=== PATIENT | female | born 1990 | race American Indian/Alaskan Native ===

== ENCOUNTER 2018-03-13 18:58 | Emergency (ER) | payer MEDICAID ==
--- NOTE | 2018-03-13 19:53 | EDM.PDOC ---
ED HPI GENERAL MEDICAL PROBLEM - General Chief Complaint: Lower Extremity Injury/Pain Stated Complaint: LEFT LEG PAIN Time Seen by Provider: 03/13/18 19:25 Source of Information: Reports: Patient History Limitations: Reports: No Limitations - History of Present Illness INITIAL COMMENTS - FREE TEXT/NARRATIVE: Left calf pain: this is a 27 year old female presents to ER for evaluation of left calf pain. States she woke up yesterday am with lower leg pain. since then has had constant pain with walking, leg feels numb and cool. denies any fever, chills, chest pain, shortness of breath, nausea, vomiting, diarrhea, rash or other symptoms except for lower leg pain. Onset Date: 03/12/18 Duration: Getting Worse Location: Reports: Lower Extremity, Left Quality: Reports: Ache, Pressure, Throbbing Severity: Moderate Improves with: Reports: Rest Worsens with: Reports: Movement Associated Symptoms: Reports: No Other Symptoms Left Knee Pain Score (Numeric/FACES): 4 - Related Data Allergies Allergy/AdvReac Type Severity Reaction Status Date / Time No Known Allergies Allergy Verified 03/13/18 19:26 Home Meds: Home Meds NK [No Known Home Meds] 03/13/18 [History] Past Medical History - Past Health History Medical/Surgical History: Denies Medical/Surgical History Social & Family History - Tobacco Use Smoking Status *Q: Current Every Day Smoker Years of Tobacco use: 10 Packs/Tins Daily: 0.5 - Living Situation & Occupation Living situation: Reports: Single (lives in [place], [place].) Review of Systems - Review of Systems Review Of Systems: See Below Constitutional: Reports: No Symptoms Eyes: Reports: No Symptoms Ears: Reports: No Symptoms Nose: Reports: No Symptoms Mouth/Throat: Reports: No Symptoms Respiratory: Reports: No Symptoms Cardiovascular: Reports: No Symptoms Genitourinary: Reports: No Symptoms Musculoskeletal: Reports: Leg Pain (left lower leg) Skin: Reports: No Symptoms Neurological: Reports: No Symptoms Psychiatric: Reports: No Symptoms ED EXAM, GENERAL - Physical Exam Exam: See Below Exam Limited By: No Limitations General Appearance: Alert, WD/WN, Mild Distress Head: Atraumatic, Normocephalic Neck: Normal Inspection, Supple, Non-Tender, Full Range of Motion Respiratory/Chest: No Respiratory Distress, Lungs Clear, Normal Breath Sounds, No Accessory Muscle Use, Chest Non-Tender Cardiovascular: Normal Peripheral Pulses, Regular Rate, Rhythm, No Edema, No Murmur Peripheral Pulses: 1+: Femoral (L), 2+: Femoral (R), Dorsalis Pedis (L), Dorsalis Pedis (R) GI/Abdominal: Normal Bowel Sounds, Soft, Non-Tender, No Organomegaly, No Distention, No Abnormal Bruit, No Mass Back Exam: Normal Inspection, Full Range of Motion, Other (no pain or tenderness with palpation of spine) Extremities: Normal Inspection, Justyna's Sign (left leg), Leg Pain (left lower leg), Other (left lower leg feels cooler than the right lower leg. muscle tense) Neurological: Alert, Oriented, Normal Cognition, Other (walking with limp) Psychiatric: Normal Affect, Normal Mood Skin Exam: Warm, Dry, Intact, Normal Color, No Rash Lymphatic: No Adenopathy Course - Vital Signs Last Recorded V/S: Last Vital Signs Temp 36.0 C 03/13/18 19:33 Pulse 91 03/13/18 19:33 Resp 15 03/13/18 19:33 BP 111/63 03/13/18 19:33 Pulse Ox 99 03/13/18 19:33 - Orders/Labs/Meds Orders: Active Orders 24 hr Category Date Time Status VL Duplex Lwr Ext Veins Ltd Lt [US] Stat Exams 03/13/18 19:46 Ordered DME for Discharge [COMM] Urgent Oth 03/13/18 21:15 Ordered Labs: Laboratory Tests 03/13/18 03/13/18 03/13/18 Range/Units 19:50 19:50 19:50 WBC 8.8 (4.5-11.0) K/uL RBC 4.51 (3.30-5.50) M/uL Hgb 13.4 (12.0-15.0) g/dL Hct 41.2 (36.0-48.0) % MCV 91 (80-98) fL MCH 30 (27-31) pg MCHC 33 (32-36) % Plt Count 300 (150-400) K/uL Neut % (Auto) 59 (36-66) % Lymph % (Auto) 30 (24-44) % [place] % (Auto) 6 (2-6) % Eos % (Auto) 5 H (2-4) % Baso % (Auto) 1 (0-1) % D-Dimer, Quantitative 240 (0.0-400.0) ng/mL Sodium 143 (140-148) mmol/L Potassium 4.3 (3.6-5.2) mmol/L Chloride 107 (100-108) mmol/L Carbon Dioxide 29 (21-32) mmol/L Anion Gap 6.8 (5.0-14.0) mmol/L BUN 13 (7-18) mg/dL Creatinine 0.8 (0.6-1.0) mg/dL Est Cr Clr Drug Dosing 92.83 mL/min Estimated GFR (MDRD) > 60 (>60) Glucose 116 H (74-106) mg/dL Calcium 8.6 (8.5-10.1) mg/dL Total Bilirubin 0.1 L (0.2-1.0) mg/dL AST 15 (15-37) U/L ALT 33 (12-78) U/L Alkaline Phosphatase 93 (46-116) U/L Total Protein 7.0 (6.4-8.2) g/dL Albumin 3.0 L (3.4-5.0) g/dL Globulin 4.0 H (2.3-3.5) g/dL Albumin/Globulin Ratio 0.8 L (1.2-2.2) - Re-Assessments/Exams Free Text/Narrative Re-Assessment/Exam: 03/13/18 19:55 -discussed will do labs and xray to rule out infection, vs DVT, vs muscle strain. -agrees with plan of care. 03/13/18 21:07 Doppler ultrasound of left leg negative for DVT labs normal, D-dimer 240 03/13/18 21:20 reviewed results with Patient and her family. will rest, treat for pain and follow up in Primary Care, will return to ER if not improved or symptoms worsen Departure - Departure Time of Disposition: 21:21 Disposition: Home, Self-Care 01 Condition: Good Clinical Impression: Leg pain, left - Discharge Information *PRESCRIPTION DRUG MONITORING PROGRAM REVIEWED*: No *COPY OF PRESCRIPTION DRUG MONITORING REPORT IN PATIENT CHIKA: No Instructions: Pain Without a Known Cause, Muscle Strain, [id number] Referrals: PCP,None [Primary Care Provider] - Forms: ED Department Discharge Care Plan Goals: Left Leg pain -Tylenol #3, take one tablet every 4 to 6 hours as needed for pain #15 -Flexeril 10mg one tablet every 8 hours as needed for pain #15 -may take over the counter Motrin 400mg every 8 hours as needed for pain -rest -ice or heat for comfort -crutches for walking -follow up with Primary Care tomorrow for recheck. -return to ER for any worsen of symptoms or any concerns. - Problem List & Annotations (1) Leg pain, left SNOMED Code(s): 061550912 Code(s): M79.605 - PAIN IN LEFT LEG Status: Acute Priority: High Current Visit: Yes - Problem List Review Problem List Initiated/Reviewed/Updated: Yes - My Orders Last 24 Hours: My Active Orders 03/13/18 19:46 VL Duplex Lwr Ext Veins Ltd Lt [US] Stat 03/13/18 21:15 DME for Discharge [COMM] Urgent - Assessment/Plan Last 24 Hours: My Active Orders 03/13/18 19:46 VL Duplex Lwr Ext Veins Ltd Lt [US] Stat 03/13/18 21:15 DME for Discharge [COMM] Urgent Plan: Left Leg pain -Tylenol #3, take one tablet every 4 to 6 hours as needed for pain #15 -Flexeril 10mg one tablet every 8 hours as needed for pain #15 -may take over the counter Motrin 400mg every 8 hours as needed for pain -rest -ice or heat for comfort -crutches for walking -follow up with Primary Care tomorrow for recheck. -return to ER for any worsen of symptoms or any concerns.
== END 2018-03-13 21:35 | disposition home or self-care (01) ==
LOC: JP.ED 18:58
DX: M79.605 Pain in left leg (principal); F17.210 Nicotine dependence, cigarettes, uncomplicated
CPT/HCPCS: 36415; 80053; 85025; 85379; 93971-LT; 99284-25

== ENCOUNTER 2020-01-28 14:09 | Emergency (ER) | payer MEDICAID ==
--- NOTE | 2020-01-28 14:40 | EDM.PDOC ---
ED HPI GENERAL MEDICAL PROBLEM - General Chief Complaint: Upper Extremity Injury/Pain Stated Complaint: LEFT SHOULDER PAIN Time Seen by Provider: 01/28/20 14:25 Source of Information: Reports: Patient, Old Records, RN History Limitations: Reports: No Limitations - History of Present Illness INITIAL COMMENTS - FREE TEXT/NARRATIVE: 29 yo female was wrestling with a girlfriend and ran into a door. Is not sure what part of the L shoulder impacted the door, but has pain to the back and top of that shoulder now. Injury was about an hour ago. No self tx. No other injuries reported. Onset: Today, Sudden Onset Date: 01/28/20 Onset Time: 13:30 Duration: Hour(s): (1), Constant Location: Reports: Upper Extremity, Left Quality: Reports: Ache Severity: Moderate Improves with: Reports: Rest Worsens with: Reports: Movement Context: Reports: Trauma Associated Symptoms: Reports: No Other Symptoms Treatments [employer]: Reports: Other (see below) (none) - Related Data Allergies Allergy/AdvReac Type Severity Reaction Status Date / Time No Known Allergies Allergy Verified 01/28/20 14:28 Home Meds: Home Meds NK [No Known Home Meds] 03/13/18 [History] Past Medical History - Past Health History Medical/Surgical History: Denies 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: - Past Surgical History Head Surgeries/Procedures: Reports: None Dermatological Surgical History: Reports: None Social & Family History - Tobacco Use Tobacco Use Status *Q: Current Every Day Tobacco User Years of Tobacco use: 10 Packs/Tins Daily: 0.5 Used Tobacco, but Quit: No Second Hand Smoke Exposure: Yes - Caffeine Use Caffeine Use: Reports: None - Recreational Drug Use Recreational Drug Use: No - Living Situation & Occupation Living situation: Reports: Single (lives in [place], [place].) Review of Systems - Review of Systems Review Of Systems: See Below Constitutional: Reports: No Symptoms Eyes: Reports: No Symptoms Ears: Reports: No Symptoms Nose: Reports: No Symptoms Respiratory: Reports: No Symptoms Cardiovascular: Reports: No Symptoms Musculoskeletal: Reports: Shoulder Pain (left). Denies: Arm Pain, Back Pain Skin: Reports: No Symptoms Neurological: Reports: No Symptoms ED EXAM, GENERAL - Physical Exam Exam: See Below Exam Limited By: No Limitations General Appearance: Alert, WD/WN, No Apparent Distress Extremities: Normal Inspection, No Pedal Edema, Limited Range of Motion (due to pain), Other (tenderness mainly over the upper L trapezius muscle. ). No: Normal Range of Motion, Non-Tender, Pedal Edema, Increased Warmth, Redness Neurological: Alert, Oriented, CN II-XII Intact, Normal Cognition, No Motor/Sensory Deficits Psychiatric: Normal Affect, Normal Mood Skin Exam: Warm, Dry, Intact, Normal Color, No Rash Course - Vital Signs Last Recorded V/S: Last Vital Signs Temp 37.1 C 01/28/20 14:28 Pulse 101 H 01/28/20 14:28 Resp 16 01/28/20 14:28 BP 120/77 01/28/20 14:28 Pulse Ox 99 01/28/20 14:28 - Orders/Labs/Meds Meds: Medications Discontinued Medications Generic Name Dose Route Start Last Admin Trade Name Freq PRN Reason Stop Dose Admin Ibuprofen 600 mg 01/28/20 14:35 01/28/20 14:45 Motrin PO 01/28/20 14:36 600 mg ONETIME ONE Administration - Radiology Interpretation Free Text/Narrative:: L shoulder [id number]: No acute fracture or dislocation. Joint spaces are well preserved. The visualized lungs are clear. Soft tissues are unremarkable. Impression: No acute findings. Dictated by Karmen Bailey MD @ Jan 28 2020 2:52PM Departure - Departure Time of Disposition: 15:10 Disposition: Home, Self-Care 01 Condition: Fair Clinical Impression: Left shoulder pain Qualifiers: Chronicity: acute Qualified Code(s): M25.512 - Pain in left shoulder - Discharge Information *PRESCRIPTION DRUG MONITORING PROGRAM REVIEWED*: No *COPY OF PRESCRIPTION DRUG MONITORING REPORT IN PATIENT CHIKA: No Instructions: Shoulder Pain Referrals: PCP,None [Primary Care Provider] - Forms: ED Department Discharge Additional Instructions: Wear the sling for support as long as your shoulder still hurts. Take ibuprofen 600 mg every 6 hrs and/or acetaminophen 650 mg every 4 hrs as needed for pain relief. Recheck with your doctor if not fully healed in a week. Sepsis Event Note (ED) - Evaluation Sepsis Screening Result: No Definite Risk - Focused Exam Vital Signs: Vital Signs Temp Pulse Resp BP Pulse Ox 01/28/20 14:28 37.1 C 101 H 16 120/77 99 01/28/20 14:26 37.1 C 101 H 16 120/77 99
[2020-01-28] MEDS: Ibuprofen 600 MG Tab PO ONE (14:45)
--- NOTE | 2020-01-28 14:56 | CRLCR ---
Indication: Hit in the back of the shoulder area with a door. Technique: Left shoulder 4 views. Comparison: None. Findings: No acute fracture or dislocation. Joint spaces are well preserved. The visualized lungs are clear. Soft tissues are unremarkable. Impression: No acute findings. Dictated by Karmen Bailey MD @ Jan 28 2020 2:52PM Signed by Dr. Karmen Bailey @ Jan 28 2020 2:54PM
== END 2020-01-28 15:11 | disposition home or self-care (01) ==
LOC: JP.ED 14:09
DX: M25.512 Pain in left shoulder (principal); F17.210 Nicotine dependence, cigarettes, uncomplicated
CPT/HCPCS: 73030; 99283; A9270

== ENCOUNTER 2020-12-05 17:36 | Emergency (ER) | payer MEDICAID ==
--- NOTE | 2020-12-05 18:31 | EDM.PDOC ---
ED HPI GENERAL MEDICAL PROBLEM - General Chief Complaint: General Stated Complaint: ABDOMINAL PAIN L SIDE Time Seen by Provider: 12/05/20 18:24 Source of Information: Reports: Patient History Limitations: Reports: No Limitations - History of Present Illness INITIAL COMMENTS - FREE TEXT/NARRATIVE: Edwin is a 30-year-old female presenting to the ED for evaluation of left-sided abdominal pain since yesterday. The patient has had a bowel movement but she cannot remember if it was last evening or this morning. She denies any nausea or vomiting. She has intense pain in the left inguinal fold going to the mons pubis. There is a bulge in that area that is exquisitely tender as well. She has had a hysterectomy after her last . She reports it was a total hysterectomy. She does have a scar just adjacent to the area of the bulge. She denies any fever or chills, she does have a diminished appetite, she denies any nausea or vomiting, urinary symptoms, or back pain. Left Lower Abdomen Pain Score (Numeric/FACES): 7 - Related Data Allergies Allergy/AdvReac Type Severity Reaction Status Date / Time No Known Allergies Allergy Verified 01/28/20 14:28 Home Meds: Home Meds NK [No Known Home Meds] 03/13/18 [History] Past Medical History - Past Health History Medical/Surgical History: Denies Medical/Surgical History [employer] History: Reports: - Past Surgical History Head Surgeries/Procedures: Reports: None Female Surgical History: Reports: Hysterectomy Dermatological Surgical History: Reports: None Social & Family History - Tobacco Use Tobacco Use Status *Q: Current Every Day Tobacco User Years of Tobacco use: 10 Packs/Tins Daily: 0.5 - Caffeine Use Caffeine Use: Reports: Coffee, Soda, Tea - Recreational Drug Use Recreational Drug Use: No - Living Situation & Occupation Living situation: Reports: Single (lives in [place], [place].) ED ROS GENERAL - Review of Systems Review Of Systems: See Below Constitutional: Reports: Decreased Appetite HEENT: Reports: No Symptoms Respiratory: Reports: No Symptoms Cardiovascular: Reports: No Symptoms Endocrine: Reports: No Symptoms GI/Abdominal: Reports: Abdominal Pain (Bilateral lower quadrants and left inguinal fold), Other (Bulging at the left inguinal fold) : Reports: No Symptoms Musculoskeletal: Reports: No Symptoms Skin: Reports: No Symptoms Neurological: Reports: No Symptoms Psychiatric: Reports: Anxiety Hematologic/Lymphatic: Reports: No Symptoms Immunologic: Reports: No Symptoms ED EXAM, GENERAL - Physical Exam Exam: See Below Exam Limited By: No Limitations General Appearance: Alert, Anxious, Moderate Distress Eye Exam: Bilateral Eye: EOMI, PERRL Throat/Mouth: Normal Inspection, Normal Oropharynx, Normal Voice, No Airway Compromise Head: Atraumatic, Normocephalic Neck: Normal Inspection, Supple, Non-Tender, Full Range of Motion Respiratory/Chest: No Respiratory Distress, Lungs Clear, Normal Breath Sounds Cardiovascular: Normal Peripheral Pulses, Regular Rate, Rhythm, No Murmur Peripheral Pulses: 2+: Radial (L), Radial (R) GI/Abdominal: Guarding (Right lower quadrant and left lower quadrant), Abnormal Bowel Sounds (Diminished bowel sounds), Hernia (A exquisitely tender and firm area starting at the left inguinal fold going into the mons pubis. This area is distended and worrisome for an incarcerated hernia. The edge of the area is adjacent to her scar.). No: Rebound Back Exam: Normal Inspection, Full Range of Motion Extremities: Normal Inspection, Normal Range of Motion Neurological: Alert, Oriented, Normal Cognition, No Motor/Sensory Deficits Psychiatric: Anxious Skin Exam: Warm, Dry, Intact, Normal Color Lymphatic: No Adenopathy Course - Vital Signs Last Recorded V/S: Last Vital Signs Temp 36.5 C 12/05/20 18:24 Pulse 114 H 12/05/20 18:24 Resp 18 12/05/20 18:24 BP 128/64 12/05/20 18:24 Pulse Ox 100 12/05/20 18:24 - Orders/Labs/Meds Orders: Active Orders 24 hr Category Date Time Status CHLAMYDIA/GC AMPLIFICATION Stat Lab 12/05/20 21:41 Received Iopamidol [Isovue-300 (61%)] Med 12/05/20 18:55 Active 88 ml IV . DIRECTED PRN Sodium Chloride 0.9% [Normal Saline] 100 ml Med 12/05/20 19:00 Active IV ASDIRECTED Sodium Chloride 0.9% [Saline Flush] Med 12/05/20 18:32 Active 10 ml FLUSH ASDIRECTED PRN Saline Lock Insert [OM.PC] Routine Oth 12/05/20 18:32 Ordered Medication Orders Sodium Chloride (Normal Saline) 100 mls @ 3 mls/sec IV ASDIRECTED CHIP Last Admin: 12/05/20 19:28 Dose: 3 mls/sec Documented by: NÉSTOR Iopamidol (Iopamidol 612 Mg/Ml 100 Ml Bottle) 88 ml IV . DIRECTED PRN PRN Reason: RADIOLOGY EXAM Stop: 12/06/20 18:56 Last Admin: 12/05/20 19:28 Dose: 88 ml Documented by: NÉSTOR Sodium Chloride (Sodium Chloride 0.9% 10 Ml Syringe) 10 ml FLUSH ASDIRECTED PRN PRN Reason: Keep Vein Open Last Admin: 12/05/20 18:39 Dose: 10 ml Documented by: MATHEW Labs: Laboratory Tests 12/05/20 12/05/20 12/05/20 Range/Units 18:40 18:40 18:40 WBC 12.0 H (4.5-11.0) K/uL RBC 4.23 (3.30-5.50) M/uL Hgb 12.0 (12.0-15.0) g/dL Hct 37.2 (36.0-48.0) % MCV 88 (80-98) fL MCH 28 (27-31) pg MCHC 32 (32-36) % Plt Count 338 (150-400) K/uL Neut % (Auto) 78.7 H (36-66) % Lymph % (Auto) 12.9 L (24-44) % [place] % (Auto) 6.6 H (2-6) % Eos % (Auto) 1.5 L (2-4) % Baso % (Auto) 0.3 (0-1) % Sodium 136 L (140-148) mmol/L Potassium 4.1 (3.6-5.2) mmol/L Chloride 101 (100-108) mmol/L Carbon Dioxide 27 (21-32) mmol/L Anion Gap 12.1 (5.0-14.0) mmol/L BUN 8 (7-18) mg/dL Creatinine 0.6 (0.6-1.0) mg/dL Est Cr Clr Drug Dosing 115.47 mL/min Estimated GFR (MDRD) > 60 (>60) Glucose 95 (74-106) mg/dL Lactic Acid 0.9 (0.4-2.0) mmol/L Calcium 8.3 L (8.5-10.1) mg/dL Total Bilirubin 0.1 L (0.2-1.0) mg/dL AST 28 D (15-37) U/L ALT 41 (12-78) U/L Alkaline Phosphatase 127 H (46-116) U/L Total Protein 6.4 (6.4-8.2) g/dL Albumin 2.8 L (3.4-5.0) g/dL Globulin 3.6 H (2.3-3.5) g/dL Albumin/Globulin Ratio 0.8 L (1.2-2.2) SARS-CoV-2 RNA (JANUARY) (NEGATIVE) 12/05/20 Range/Units 18:42 WBC (4.5-11.0) K/uL RBC (3.30-5.50) M/uL Hgb (12.0-15.0) g/dL Hct (36.0-48.0) % MCV (80-98) fL MCH (27-31) pg MCHC (32-36) % Plt Count (150-400) K/uL Neut % (Auto) (36-66) % Lymph % (Auto) (24-44) % [place] % (Auto) (2-6) % Eos % (Auto) (2-4) % Baso % (Auto) (0-1) % Sodium (140-148) mmol/L Potassium (3.6-5.2) mmol/L Chloride (100-108) mmol/L Carbon Dioxide (21-32) mmol/L Anion Gap (5.0-14.0) mmol/L BUN (7-18) mg/dL Creatinine (0.6-1.0) mg/dL Est Cr Clr Drug Dosing mL/min Estimated GFR (MDRD) (>60) Glucose (74-106) mg/dL Lactic Acid (0.4-2.0) mmol/L Calcium (8.5-10.1) mg/dL Total Bilirubin (0.2-1.0) mg/dL AST (15-37) U/L ALT (12-78) U/L Alkaline Phosphatase (46-116) U/L Total Protein (6.4-8.2) g/dL Albumin (3.4-5.0) g/dL Globulin (2.3-3.5) g/dL Albumin/Globulin Ratio (1.2-2.2) SARS-CoV-2 RNA (JANUARY) Negative (NEGATIVE) Meds: Medications Generic Name Dose Route Start Last Admin Trade Name Sidneyq PRN Reason Stop Dose Admin Sodium Chloride 100 mls @ 3 mls/sec 12/05/20 19:00 12/05/20 19:28 Normal Saline IV 3 mls/sec ASDIRECTED CHIP Administration Iopamidol 88 ml 12/05/20 18:55 12/05/20 19:28 Iopamidol 612 Mg/Ml 100 Ml Bottle IV 12/06/20 18:56 88 ml . DIRECTED PRN Administration RADIOLOGY EXAM Sodium Chloride 10 ml 12/05/20 18:32 12/05/20 18:39 Sodium Chloride 0.9% 10 Ml Syringe FLUSH 10 ml ASDIRECTED PRN Administration Keep Vein Open Discontinued Medications Generic Name Dose Route Start Last Admin Trade Name Freq PRN Reason Stop Dose Admin Azithromycin 1,000 mg 12/05/20 21:19 12/05/20 21:48 Azithromycin 250 Mg Tab PO 12/05/20 21:20 1,000 mg ONETIME ONE Administration Ceftriaxone Sodium 250 mg 12/05/20 21:19 12/05/20 21:47 Ceftriaxone 500 Mg Vial IM 12/05/20 21:20 250 mg ONETIME ONE Administration Doxycycline Hyclate 100 mg 12/05/20 21:19 12/05/20 21:48 Doxycycline 100 Mg Cap PO 12/05/20 21:20 100 mg ONETIME ONE Administration Hydromorphone HCl 0.5 mg 12/05/20 18:32 12/05/20 18:37 Hydromorphone 0.5 Mg/0.5 Ml Syringe IVPUSH 12/05/20 18:33 0.5 mg ONETIME ONE Administration Ondansetron HCl 4 mg 12/05/20 18:32 12/05/20 18:37 Ondansetron 4 Mg/2 Ml Sdv IVPUSH 12/05/20 18:33 4 mg ONETIME ONE Administration Sodium Chloride 10 ml 12/05/20 18:55 12/05/20 19:28 Sodium Chloride 0.9% 10 Ml Sdv FLUSH 12/05/20 18:56 10 ml ONETIME ONE Administration - Radiology Interpretation Free Text/Narrative:: I reviewed the images of the CT of the abdomen and pelvis with contrast as well as the report. The report is as follows: Findings: Bibasilar atelectasis is identified. The heart is normal in size. No pericardial effusion is identified. The liver, spleen, pancreas, adrenals, gallbladder, and kidneys are normal. No intrahepatic biliary ductal dilatation is identified. No hydronephrosis is identified. In the pelvis, the urinary bladder is normal. The uterus is normal. Probable small left ovarian cyst is identified. Thickening of the wall the urinary bladder is identified which may be due to cystitis versus incomplete distention. The small and large bowel are normal in caliber. The aorta is normal in caliber. No free fluid or free air is identified within the abdomen or pelvis. Numerous left inguinal and left pelvic sidewall lymph nodes are identified up. At the level of the left inguinal canal, a lymph node is identified measuring 2.0 x 1.4 centimeters in size. This has low density centrally. In the left inguinal region, a lymph node is identified measuring 2.4 x 2.7 centimeters in size. Multiple other lymph nodes are identified in this region. Fat stranding is identified in this region. Impression: No evidence of inguinal hernia. Numerous enlarged and normal sized lymph nodes identified within the left pelvic sidewall and the left inguinal region. Some of these do have low attenuation centrally, suggesting necrosis. Surrounding fat stranding is identified in the left inguinal region extending into the mons pubis. Thickening of the wall of the urinary bladder, cystitis versus lack of complete distention. This findings may all be related to infection. However, other etiologies cannot be completely excluded. Consideration should be given to follow-up imaging to resolution. Please note that all CT scans at this facility use dose modulation, iterative reconstruction, and/or weight-based dosing when appropriate to reduce radiation dose to as low as reasonably achievable. Dictated by Oneyda Davidson MD @ 12/05/2020 8:15:12 PM - Re-Assessments/Exams Free Text/Narrative Re-Assessment/Exam: 12/05/20 20:17 I reviewed the patient's labs showing a mild leukocytosis at 12.0, hemoglobin of 12.0 with a hematocrit of 37.2 and platelet count of 338,000. Her comprehensive metabolic profile is normal. Her venous lactate is 0.9. She is Covid negative. I discussed the results of the CT of the abdomen and pelvis with Dr. Garcia who feels that this is probably an infectious process and recommended covering for any STIs including chlamydia, gonorrhea, and syphilis. We will get a GC and chlamydia test and we are treating her with azithromycin 1 g p.o., doxycycline 100 mg twice daily for 14 days for syphilis and Rocephin 250 mg IM. This should cover the gonorrhea, chlamydia, and syphilis. Would like her to follow-up with her primary doc within a week for reevaluation. Indications return to the ED were discussed. Departure - Departure Time of Disposition: 22:39 Disposition: Home, Self-Care 01 Clinical Impression: Acute inguinal lymphadenitis, STI (sexually transmitted infection), Pelvic inflammatory disease (PID) - Discharge Information Instructions: Pelvic Inflammatory Disease, [id number] Referrals: PCP,None [Primary Care Provider] - Forms: ED Department Discharge Care Plan Goals: We have started you on antibiotics to treat for pelvic inflammatory disease which is causing swelling and inflammation around your lymph nodes in the pelvis. I am also going to put you on doxycycline 100 mg twice daily for the next 14 days to treat for syphilis prophylactically. I would commend that your partner be checked or treated for chlamydia/gonorrhea/syphilis as well so that the infection does not perpetuate. Sepsis Event Note (ED) - Focused Exam Vital Signs: Vital Signs Temp Pulse Resp BP Pulse Ox 12/05/20 18:24 36.5 C 114 H 18 128/64 100 12/05/20 18:01 36.5 C 114 H 18 128/64 100 - Problem List & Annotations (1) Acute inguinal lymphadenitis SNOMED Code(s): 78768111233364925 Code(s): L04.8 - ACUTE LYMPHADENITIS OF OTHER SITES Status: Acute Priority: High Current Visit: Yes (2) Pelvic inflammatory disease (PID) SNOMED Code(s): 587866448 Code(s): N73.9 - FEMALE PELVIC INFLAMMATORY DISEASE, UNSPECIFIED Status: Acute Priority: High Current Visit: Yes (3) STI (sexually transmitted infection) SNOMED Code(s): 1442228 Code(s): A64 - UNSPECIFIED SEXUALLY TRANSMITTED DISEASE Status: Acute P riority: High Current Visit: Yes - Problem List Review Problem List Initiated/Reviewed/Updated: Yes - My Orders Last 24 Hours: My Active Orders 12/05/20 18:32 Sodium Chloride 0.9% [Saline Flush] 10 ml FLUSH ASDIRECTED PRN Saline Lock Insert [OM.PC] Routine 12/05/20 18:55 Iopamidol [Isovue-300 (61%)] 88 ml IV . DIRECTED PRN 12/05/20 19:00 Sodium Chloride 0.9% [Normal Saline] 100 ml IV ASDIRECTED 12/05/20 21:41 CHLAMYDIA/GC AMPLIFICATION Stat - Assessment/Plan Last 24 Hours: My Active Orders 12/05/20 18:32 Sodium Chloride 0.9% [Saline Flush] 10 ml FLUSH ASDIRECTED PRN Saline Lock Insert [OM.PC] Routine 12/05/20 18:55 Iopamidol [Isovue-300 (61%)] 88 ml IV . DIRECTED PRN 12/05/20 19:00 Sodium Chloride 0.9% [Normal Saline] 100 ml IV ASDIRECTED 12/05/20 21:41 CHLAMYDIA/GC AMPLIFICATION Stat
[2020-12-05] MEDS ORDERED: Ondansetron 4 MG/2 ML SDV IVPUSH ONE (18:32)
[2020-12-05] MEDS ORDERED: HYDROmorphone 0.5 MG/0.5 ML Syringe IVPUSH ONE (18:32)
[2020-12-05] MEDS ORDERED: Sodium Chloride 0.9% 10 ML Syringe FLUSH PRN (18:32)
[2020-12-05] MEDS ORDERED: Sodium Chloride 0.9% 10 ML SDV FLUSH ONE (18:55)
[2020-12-05] MEDS ORDERED: Iopamidol 612 MG/ML 100 ML Bottle IV PRN (18:55)
[2020-12-05] MEDS ORDERED: Sodium Chloride 0.9% 100 ML IV SCH (19:00)
--- NOTE | 2020-12-05 20:16 | CRLCT ---
For Patients: As a result of the 21st Century Cures Act, medical imaging exams and procedure reports are released immediately into your electronic medical record. You may view this report before your referring provider. If you have questions, please contact your health care provider. Indication: Suspected incarcerated hernia left inguinal region. Technique: Multiple contiguous axial images were obtained from the lung bases through the symphysis pubis after the intravenous administration a 88 cc Isovue 300. Please note that all CT scans at this facility use dose modulation, iterative reconstruction, and/or weight-based dosing when appropriate to reduce radiation dose to as low as reasonably achievable. Comparison: None Findings: Bibasilar atelectasis is identified. The heart is normal in size. No pericardial effusion is identified. The liver, spleen, pancreas, adrenals, gallbladder, and kidneys are normal. No intrahepatic biliary ductal dilatation is identified. No hydronephrosis is identified. In the pelvis, the urinary bladder is normal. The uterus is normal. Probable small left ovarian cyst is identified. Thickening of the wall the urinary bladder is identified which may be due to cystitis versus incomplete distention. The small and large bowel are normal in caliber. The aorta is normal in caliber. No free fluid or free air is identified within the abdomen or pelvis. Numerous left inguinal and left pelvic sidewall lymph nodes are identified up. At the level of the left inguinal canal, a lymph node is identified measuring 2.0 x 1.4 centimeters in size. This has low density centrally. In the left inguinal region, a lymph node is identified measuring 2.4 x 2.7 centimeters in size. Multiple other lymph nodes are identified in this region. Fat stranding is identified in this region. Impression: No evidence of inguinal hernia. Numerous enlarged and normal sized lymph nodes identified within the left pelvic sidewall and the left inguinal region. Some of these do have low attenuation centrally, suggesting necrosis. Surrounding fat stranding is identified in the left inguinal region extending into the mons pubis. Thickening of the wall of the urinary bladder, cystitis versus lack of complete distention. This findings may all be related to infection. However, other etiologies cannot be completely excluded. Consideration should be given to follow-up imaging to resolution. Please note that all CT scans at this facility use dose modulation, iterative reconstruction, and/or weight-based dosing when appropriate to reduce radiation dose to as low as reasonably achievable. Dictated by Oneyda Davidson MD @ 12/05/2020 8:15:12 PM (Electronically Signed)
[2020-12-05] MEDS ORDERED: Doxycycline 100 MG Cap PO ONE (21:19)
[2020-12-05] MEDS ORDERED: Azithromycin 250 MG Tab PO ONE (21:19)
[2020-12-05] MEDS ORDERED: cefTRIAXone 500 MG Vial IM ONE (21:19)
[2020-12-08 12:14] LABS: CHLAMYDIA TRACHOMATIS, NAA Positive (Negative); NEISSERIA GONORRHOEAE, NAA Positive (Negative)
== END 2020-12-05 22:51 | disposition home or self-care (01) ==
LOC: JP.ED 17:36
DX: N73.9 Female pelvic inflammatory disease, unspecified (principal); L04.1 Acute lymphadenitis of trunk; A64 Unspecified sexually transmitted disease; Z72.0 Tobacco use; Z20.822 Contact with and (suspected) exposure to COVID-19
CPT/HCPCS: 36415; 74177; 80053; 83605; 85025; 87491; 87591; 87635; 96374; 96375; 99284; A9270; J0696; J1170; J2405; Q9967; 96372; U0002